=== PATIENT | male | born 1955 | race African-American/Black ===

== ENCOUNTER 2018-04-19 13:00 | Inpatient (IN) | payer OTHER ==
[2018-04-19 16:59] VITALS: BMI 21.4
--- NOTE | 2018-04-19 19:39 | HP ---
CIWA Score - CIWA Score Nausea/Vomitin-No Nausea/No Vomiting Muscle Tremors: 2 Anxiety: 3 Agitation: 3 Paroxysmal Sweats: 2 Orientation: 0-Oriented Tacttile Disturbances: 0-None Auditory Disturbances: 0-None Visual Disturbances: 0-None Headache: 0-None Present CIWA-Ar Total Score: 10 Admission ROS S - HPI Chief Complaint: alcohol withdrawal symptoms Allergies/Adverse Reactions: Allergies Allergy/AdvReac Type Severity Reaction Status Date / Time No Known Allergies Allergy Verified 04/19/18 17:23 History of Present Illness: 63 yo male with hx of alcohol, crystal meth and cocaine. Last detox [facility] 2015. Longest period of sobriety four year, reports relapsed in January 2018 d/t stress. PMHX: BPH. Denies psych hx. Denies of seizure or blackouts. Denies suicidal / homicidal ideation. Reports tx at [facility] 04/17/18 for prostatitis. Denies any legal problems. Exam Limitations: No Limitations - Ebola screening Have you traveled outside of the country in the last 21 days: No Have you had contact with anyone from an Ebola affected area: No - Review of Systems Constitutional: Unintentional Wgt. Loss (15 lbs in the past three months) EENT: reports: No Symptoms Reported Respiratory: reports: No Symptoms reported Cardiac: reports: No Symptoms Reported GI: reports: Poor Fluid Intake : reports: See HPI Musculoskeletal: reports: No Symptoms Reported Integumentary: reports: No Symptoms Reported Endocrine: reports: Increased Thirst Hematology: reports: No Symptoms Reported Psychiatric: reports: Mood/Affect Appropiate, Orientated x3 Other Systems: Reviewed and Negative Patient History - Patient Medical History Hx Anemia: No Hx Asthma: No Hx Chronic Obstructive Pulmonary Disease (COPD): No Hx Cancer: No Hx Cardiac Disorders: No Hx Congestive Heart Failure: No Hx Hypertension: No Hx Hypercholesterolemia: No Hx Pacemaker: No HX Cerebrovascular Accident: No Hx Seizures: No Hx Dementia: No Hx Diabetes: No Hx Gastrointestinal Disorders: No Hx Liver Disease: No Hx Genitourinary Disorders: Yes (BPH ) Hx Sexually Transmitted Disorders: No Hx Renal Disease (ESRD): No Hx Thyroid Disease: No Hx Human Immunodeficiency Virus (HIV): No (NEGATIVE HX) Hx Hepatitis C: No Hx Depression: No Hx Suicide Attempt: No Hx Bipolar Disorder: No Hx Schizophrenia: No - Patient Surgical History Past Surgical History: No Hx Neurologic Surgery: No Hx Cataract Extraction: No Hx Cardiac Surgery: No Hx Lung Surgery: No Hx Breast Surgery: No Hx Breast Biopsy: No Hx Abdominal Surgery: No Hx Appendectomy: No Hx Cholecystectomy: No Hx Genitourinary Surgery: No Hx Section: No Hx Orthopedic Surgery: No - PPD History Documented Results: Positive w/o proof Results: CXR TO BE DONE PPD to be Administered?: No - Smoking Cessation Smoking history: Former smoker Have you smoked in the past 12 months: No If you are a former smoker, when did you quit?: 25 YRS AGO Hx Chewing Tobacco Use: No Initiated information on smoking cessation: No - Substance & Tx. History Hx Alcohol Use: Yes Hx Substance Use: Yes Substance Use Type: Alcohol, Cocaine Hx Substance Use Treatment: Yes (Last detox [facility] 2015) - Substances Abused Alcohol Route: Oral Frequency: Daily Amount used: 1 PINT Age of first use: 15 Date of Last Use: 04/19/18 Cocaine Route: Smoking Frequency: Daily Amount used: 3 GRAMS Age of first use: 37 Date of Last Use: 04/18/18 CRYSTAL METH Route: Smoking Frequency: Daily Amount used: 2 GRAMS Age of first use: 63 Date of Last Use: 04/17/18 Family Disease History - Family Disease History Family Disease History: CA: Mother () Admission Physical Exam S - Vital Signs Vital Signs: Vital Signs - 24 hr 04/19/18 16:49 Temperature 97.7 F Pulse Rate 75 Respiratory 18 Rate Blood Pressure 144/84 - Physical General Appearance: Yes: Appropriately Dressed, Mild Distress, Thin, Anxious HEENTM: Yes: EOMI, Hearing grossly Normal, Normal ENT Inspection, Normocephalic , Normal Voice, PETRA, Pharynx Normal, Tm's normal Respiratory: Yes: Chest Non-Tender, Lungs Clear, Normal Breath Sounds, No Respiratory Distress, No Accessory Muscle Use Neck: Yes: Within Normal Limits Breast: Yes: Breast Exam Deferred Cardiology: Yes: Regular Rhythm, Regular Rate Abdominal: Yes: Normal Bowel Sounds, Non Tender, Flat, Soft Genitourinary: Yes: Within Normal Limits Back: Yes: Normal Inspection Musculoskeletal: Yes: full range of Motion, Gait Steady, Pelvis Stable Extremities: Yes: Normal Capillary Refill, Normal Inspection, Normal Range of Motion, Non-Tender Neurological: Yes: hand 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 II-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 NML intact, Fully Oriented, Alert, Motor Strength 5/5, Depressed Affect Integumentary: Yes: Normal Color, Warm, Moist Lymphatic: Yes: Within Normal Limits - Diagnostic (1) Alcohol dependence with uncomplicated withdrawal Current Visit: Yes Status: Chronic (2) Cocaine dependence, uncomplicated Current Visit: Yes Status: Chronic (3) BPH (benign prostatic hyperplasia) Current Visit: Yes Status: Chronic Qualifiers: Lower urinary tract symptom detail: unspecified (4) Amphetamine dependence Current Visit: Yes Status: Acute Cleared for Admission [facility] - Detox or Rehab [facility] Level of Care: Medically Supervised Detox Regimen/Protocol: Librium [facility] Breath Alcohol Content Breath Alcohol Content: 0 Urine Drug Screen - Results Drug Screen Negative: No Urine Drug Screen Results: THC-Marijuana, JEANNE-Cocaine, MET-Methamphetamine
[2018-04-19] MEDS ORDERED: MAGNESIUM HYDROX 2400MG/30ML ORAL SUSPENSION 30 ML CUP PO PRN (19:52)
[2018-04-19] MEDS ORDERED: P-EPHED 60MG/TRIPROLIDI 2.5MG TABLET PO PRN (19:52)
[2018-04-19] MEDS ORDERED: ACETAMINOPHEN 325 MG TABLET (FP) PO PRN (19:52)
[2018-04-19] MEDS ORDERED: chlordiazePOXIDE HCL 25 MG CAPSULE PO PRN (19:52)
[2018-04-19] MEDS ORDERED: LOPERAMIDE HCL 2 MG CAPSULE PO PRN (19:52)
[2018-04-19] MEDS ORDERED: MENTHOL/PHENOL 1 EACH UD MM PRN (19:52)
[2018-04-19] MEDS ORDERED: chlordiazePOXIDE HCL 25 MG CAPSULE PO ONE (19:52)
[2018-04-19] MEDS ORDERED: IBUPROFEN 400 MG TABLET (FP) PO PRN (19:52)
[2018-04-19] MEDS ORDERED: MAG HYDROX/AL HYDROX/SIMETH 30 ML UNIT-DOSE CUP PO PRN (19:52)
[2018-04-19] MEDS ORDERED: MAGNESIUM CITRATE 300 ML BOTTLE PO PRN (19:52)
[2018-04-19] MEDS ORDERED: guaiFENesin/D-METHORPHAN HB 10 ML UNIT-DOSE CUPS PO PRN (19:52)
[2018-04-19] MEDS ORDERED: MELATONIN 5 MG TABLETS PO PRN (22:00)
[2018-04-19] MEDS: chlordiazePOXIDE HCL 25 MG CAPSULE PO SCH (23:45)
[2018-04-19] MEDS: THIAMINE HCL 100 MG TABLET (FP) PO SCH (23:45)
[2018-04-20 01:09] LABS: URINE APPEARANCE CLEAR; URINE BILIRUBIN NEGATIVE (<2.0 mg/dL); URINE COLOR YELLOW; URINE GLUCOSE (UA) NEGATIVE (NEGATIVE); URINE KETONE NEGATIVE (NEGATIVE); URINE LEUK ESTERASE NEGATIVE (NEGATIVE); URINE NITRITE NEGATIVE (NEGATIVE); URINE PROTEIN NEGATIVE (NEGATIVE); URINE UROBILINOGEN 4.0 E.U/dl mg/dL (0.2-1.0)
[2018-04-20] MEDS: chlordiazePOXIDE HCL 25 MG CAPSULE PO SCH ×2 (06:58→10:11)
--- NOTE | 2018-04-20 09:23 | EKG ---
Test Reason : Blood Pressure : / mmHG Vent. Rate : 082 BPM Atrial Rate : 082 BPM P-R Int : 176 ms QRS Dur : 084 ms QT Int : 368 ms P-R-T Axes : 068 074 070 degrees QTc Int : 429 ms NORMAL SINUS RHYTHM NORMAL ECG NO PREVIOUS ECGS AVAILABLE Confirmed by RAJ NICOLE, ALMA ([id number]) on 04/20/2018 9:22:35 AM Referred By: Confirmed By:ALMA ANTHONY MD
[2018-04-20] MEDS: TAMSULOSIN HCL 0.4 MG CAP PO SCH (10:11)
[2018-04-20] MEDS: PRENATAL VITAMINS W/ FOLIC ACID TABLET (FP) PO SCH (10:11)
[2018-04-20 10:30] LABS: HEMATOCRIT 42.2 % (35.4-49); HEMOGLOBIN 13.5 GM/dL (11.7-16.9); MCH 26.9 pg (25.7-33.7); MCHC 32.1 g/dl (32.0-35.9); MEAN CELL VOLUME 83.6 fl (80-96); MEAN PLT VOLUME 7.6 fl (7.5-11.1); PLATELET COUNT 346 K/MM3 (134-434); RBC 5.04 M/mm3 (4.00-5.60); RDW 15.5 % (11.9-15.9); WHITE BLOOD COUNT 5.2 K/mm3 (4.0-10.0)
--- NOTE | 2018-04-20 10:34 | PN ---
S CIWA - CIWA Score Nausea/Vomitin-Mild Nausea/No Vomiting Muscle Tremors: 3 Anxiety: 3 Agitation: 3 Paroxysmal Sweats: 1-Minimal Palms Moist Orientation: 0-Oriented (to date) Tacttile Disturbances: 0-None Auditory Disturbances: 0-None Visual Disturbances: 0-None Headache: 0-None Present CIWA-Ar Total Score: 11 BHS Progress Note (SOAP) Subjective: sweat tremor gi distress restlessness trouble sleep at night Objective: 04/20/18 10:33 Vital Signs Temperature 98.4 F 04/20/18 09:08 Pulse Rate 74 04/20/18 09:08 Respiratory Rate 18 04/20/18 09:08 Blood Pressure 129/90 04/20/18 09:08 O2 Sat by Pulse Oximetry (%) Laboratory Last Values Urine Color Yellow 04/20/18 00:05 Urine Appearance Clear 04/20/18 00:05 Urine pH 6.0 (5.0-8.0) 04/20/18 00:05 Ur Specific [employer] 1.028 (1.010-1.035) 04/20/18 00:05 Urine Protein Negative (NEGATIVE) 04/20/18 00:05 Urine Glucose (UA) Negative (NEGATIVE) 04/20/18 00:05 Urine Ketones Negative (NEGATIVE) 04/20/18 00:05 Urine Blood Negative (NEGATIVE) 04/20/18 00:05 Urine Nitrite Negative (NEGATIVE) 04/20/18 00:05 Urine Bilirubin Negative (<2.0 mg/dL) 04/20/18 00:05 Urine Urobilinogen 4.0 e.u/dl mg/dL (0.2-1.0) 04/20/18 00:05 Ur Leukocyte Esterase Negative (NEGATIVE) 04/20/18 00:05 lab noted Assessment: 04/20/18 10:33 withdrawal sx Plan: continue detox
[2018-04-20] MEDS ORDERED: diazePAM 5 MG TABLET PO PRN (10:40)
[2018-04-20 11:12] LABS: ALBUMIN 2.8 g/dl (3.4-5.0); ALK PHOS 52 U/L (45-117); ANION GAP 6 MMOL/L (8-16); BILIRUBIN,TOTAL 0.4 mg/dL (0.2-1); BLOOD UREA NITROGEN 9 mg/dL (7-18); CALCIUM 8.3 mg/dL (8.5-10.1); CHLORIDE 110 mmol/L (98-107); CO2 26 mmol/L (21-32); GLUCOSE,RANDOM 90 mg/dL (74-106); POTASSIUM 4.4 mmol/L (3.5-5.1); SGOT/AST 18 U/L (15-37); SGPT/ALT 22 U/L (13-61); SODIUM 142 mmol/L (136-145); TOT PROT 5.9 g/dl (6.4-8.2)
[2018-04-20] MEDS: LEVOFLOXACIN PO SCH (12:01)
[2018-04-20] MEDS: diazePAM 5 MG TABLET PO SCH ×2 (13:53→22:27)
[2018-04-20] MEDS ORDERED: diazePAM 5 MG TABLET PO SCH (14:00)
[2018-04-20] MEDS: THIAMINE HCL 100 MG TABLET (FP) PO SCH (22:27)
[2018-04-20] MEDS ORDERED: chlordiazePOXIDE HCL 25 MG CAPSULE PO SCH (23:00)
[2018-04-21] MEDS: LEVOFLOXACIN PO SCH (06:56)
[2018-04-21] MEDS: TAMSULOSIN HCL 0.4 MG CAP PO SCH (10:22)
[2018-04-21] MEDS: diazePAM 5 MG TABLET PO SCH ×2 (10:23→22:21)
[2018-04-21] MEDS: PRENATAL VITAMINS W/ FOLIC ACID TABLET (FP) PO SCH (10:23)
--- NOTE | 2018-04-21 12:08 | PN ---
S CIWA - CIWA Score Nausea/Vomitin-Mild Nausea/No Vomiting Muscle Tremors: 2 Anxiety: 2 Agitation: 2 Paroxysmal Sweats: 2 Orientation: 0-Oriented Tacttile Disturbances: 0-None Auditory Disturbances: 0-None Visual Disturbances: 0-None Headache: 0-None Present CIWA-Ar Total Score: 9 BHS Progress Note (SOAP) Subjective: PATIENT C/O SHAKES, SWEATING/CHILLS AND ANXIETY. Objective: 04/21/18 12:05 Vital Signs Temperature 98.3 F 04/21/18 09:02 Pulse Rate 89 04/21/18 09:02 Respiratory Rate 18 04/21/18 09:02 Blood Pressure 134/92 04/21/18 09:02 O2 Sat by Pulse Oximetry (%) Laboratory Tests 04/20/18 04/20/18 04/20/18 00:05 07:00 07:00 WBC 5.2 RBC 5.04 Hgb 13.5 Hct 42.2 MCV 83.6 MCH 26.9 MCHC 32.1 RDW 15.5 Plt Count 346 MPV 7.6 Sodium Potassium Chloride Carbon Dioxide Anion Gap BUN Creatinine Creat Clearance w eGFR Random Glucose Calcium Total Bilirubin AST ALT Alkaline Phosphatase Total Protein Albumin Urine Color Yellow Urine Appearance Clear Urine pH 6.0 Ur Specific [place] 1.028 Urine Protein Negative Urine Glucose (UA) Negative Urine Ketones Negative Urine Blood Negative Urine Nitrite Negative Urine Bilirubin Negative Urine Urobilinogen 4.0 e.u/dl Ur Leukocyte Esterase Negative RPR Titer HIV 1&2 Antibody Screen Negative HIV P24 Antigen Negative 04/20/18 04/20/18 07:00 07:00 WBC RBC Hgb Hct MCV MCH MCHC RDW Plt Count MPV Sodium 142 Potassium 4.4 Chloride 110 H Carbon Dioxide 26 Anion Gap 6 L BUN 9 Creatinine 1.0 Creat Clearance w eGFR > 60 Random Glucose 90 Calcium 8.3 L Total Bilirubin 0.4 AST 18 ALT 22 Alkaline Phosphatase 52 Total Protein 5.9 L Albumin 2.8 L Urine Color Urine Appearance Urine pH Ur Specific [place] Urine Protein Urine Glucose (UA) Urine Ketones Urine Blood Urine Nitrite Urine Bilirubin Urine Urobilinogen Ur Leukocyte Esterase RPR Titer Nonreactive HIV 1&2 Antibody Screen HIV P24 Antigen SKIN WARM, +SWEATING ON FOREHEAD CAR S1S2 RESP CTA BL GI SOFT, BS+, NT EXT FULL ROM, +TREMORS A/P WITHDRAWAL SX CONTINUE DETOX ORDERED ENCOURAGE ORAL FLUIDS CONTINUE TO MONITOR CLINICALLY Assessment: 04/21/18 12:07 WITHDRAWAL SX Plan: CONTINUE DETOX ENCOURAGE ORAL FLUIDS CONTINUE TO MONITOR CLINICALLY
--- NOTE | 2018-04-21 13:38 | PN ---
S Progress Note Note: PATIENT SUSTAINED SKIN TEAR TO SCALP AREA AFTER SHAVING. SMALL AMOUNT OF BLEEDING NOTED. SKIN TEAR SUPERFICIAL. NONTENDER, NO SWELLING NOTED. WILL ORDER BACITRACIN TP OINTMENT AND DRY DRESSING DAILY X 5 DAYS. CONTINUE TO MONITOR CLINICALLY.
[2018-04-21] MEDS: BACITRACIN 0.9 GM PACKET TP SCH (14:30)
[2018-04-21] MEDS: THIAMINE HCL 100 MG TABLET (FP) PO SCH (22:21)
[2018-04-21] MEDS ORDERED: chlordiazePOXIDE 5 MG CAPSULE PO SCH (23:00)
[2018-04-22] MEDS: LEVOFLOXACIN PO SCH (05:06)
[2018-04-22] MEDS: TAMSULOSIN HCL 0.4 MG CAP PO SCH (07:31)
[2018-04-22 09:29] VITALS: BP 118/80; PULSE 94; TEMP 97.2
[2018-04-22] MEDS ORDERED: diazePAM 5 MG TABLET PO SCH (10:00)
[2018-04-22] MEDS: diazePAM 5 MG TABLET PO SCH (10:30)
[2018-04-22] MEDS: BACITRACIN 0.9 GM PACKET TP SCH (10:30)
[2018-04-22] MEDS: PRENATAL VITAMINS W/ FOLIC ACID TABLET (FP) PO SCH (10:30)
--- NOTE | 2018-04-22 11:09 | PN ---
BHS Progress Note (SOAP) Subjective: Denies any complaint Requesting to leave today to attend a Worship Concert tomorrow Will go to [facility] on Tuesday for Aftercare Objective: 04/22/18 11:07 No distress noted Walking steadily around the unit Vital Signs Temperature 97.2 F L 04/22/18 09:28 Pulse Rate 94 H 04/22/18 09:28 Respiratory Rate 18 04/22/18 09:28 Blood Pressure 118/80 04/22/18 09:28 O2 Sat by Pulse Oximetry (%) Assessment: 04/22/18 11:08 Pt will leave AMA Plan: Leaving AMA Prescription Flomax sent to [facility] Will complete the levofloxacin from home stock
--- NOTE | 2018-04-22 11:14 | DS ---
S Detox Discharge Summary Admission Date: 04/19/18 Discharge Date: 04/22/18 - History Additional Comments: Pt insisting on leaving today States he has a sikh concert to attend tomorrow [facility] - Physical Exam Results Vital Signs: Vital Signs Temperature 97.2 F L 04/22/18 09:28 Pulse Rate 94 H 04/22/18 09:28 Respiratory Rate 18 04/22/18 09:28 Blood Pressure 118/80 04/22/18 09:28 O2 Sat by Pulse Oximetry (%) Pertinent Admission Physical Exam Findings: withdrawal sx - Medication Discharge Medications: Ambulatory Orders levoFLOXacin [Levaquin -] 500 mg PO DAILY 04/19/18 Tamsulosin HCl [Flomax] 0.4 mg PO DAILY 30 Days #30 capsule 04/22/18 - AMA Did Patient Leave Against Medical Advice: Yes
[2018-04-22] MEDS ORDERED: chlordiazePOXIDE HCL 10 MG CAPSULE PO SCH (23:00)
[2018-04-23] MEDS ORDERED: diazePAM 5 MG TABLET PO SCH (06:00)
== END 2018-04-22 11:30 | disposition left against medical advice (07) | DRG 770 ==
LOC: YASAS 13:00 → Y6N 16:46
PROC: HZ2ZZZZ Detoxification Services for Substance Abuse Treatment (ICD-10-PCS; principal; 2018-04-19)
DX: F10.230 Alcohol dependence with withdrawal, uncomplicated (principal); F14.20 Cocaine dependence, uncomplicated; F15.20 Other stimulant dependence, uncomplicated; N40.0 Benign prostatic hyperplasia without lower urinary tract symptoms
CPT/HCPCS: 36415; 71046-TC-FY; 80053; 81003; 85027; 86593; 87389; 93005; 93010